=== PATIENT | female | born 1960 | race Caucasian/White ===

== ENCOUNTER 2019-02-15 12:40 | Outpatient (CLI) | payer BC ==
--- NOTE | 2019-02-15 13:37 | MRI ---
EXAM: MRI right knee PROVIDED CLINICAL HISTORY: Pain COMPARISON: None FINDINGS: The anterior cruciate ligament, posterior cruciate ligament, medial collateral ligament and lateral c ollateral ligamentous complex demonstrate an intact MR appearance, as does the extensor mechanism. There is a radial tear involving the body of the lateral meniscus. There is a complex, primarily long itudinal vertical tear involving the body of the medial meniscus. No focal articular cartilage defect is apparent. There is a small knee joint effusion. 4 mm intra-articular body posterior to the posterior horn of th e medial meniscus. Small Parson's cyst. No focal concerning regional marrow or muscular signal abnormality apparent. IMPRESSION: 1. Medial and lateral meniscal tears as above. 2. Small knee joint effusion with intra-articular body.
== END 2019-02-15 12:41 | disposition home or self-care (01) ==
LOC: TBSIIMAG 12:40
DX: M25.561 Pain in right knee (principal); M23.91 Unspecified internal derangement of right knee; M25.461 Effusion, right knee; S83.281A Other tear of lateral meniscus, current injury, right knee, initial encounter; S83.241A Other tear of medial meniscus, current injury, right knee, initial encounter